=== PATIENT | male | born 1955 | race Caucasian/White ===

== ENCOUNTER 2020-05-18 16:45 | Emergency (ER) | payer BC ==
[2020-05-18] MEDS ORDERED: Lidocaine 4% 5 ML Amp INJECT ONE (18:24)
[2020-05-18] MEDS ORDERED: Diphtheria,Pertussis(Acell),Tetanus Vaccine 0.5 ML SDV IM ONE (18:24)
[2020-05-18] MEDS ORDERED: Bacitracin Oint 1 GM U/D Packet TOP ONE (18:25)
--- NOTE | 2020-05-18 18:29 | EDM.PDOC ---
ED HPI GENERAL MEDICAL PROBLEM - General Chief Complaint: Laceration Stated Complaint: CUT TO SIDE OF LT THUMB Time Seen by Provider: 05/18/20 18:25 Source of Information: Reports: Patient History Limitations: Reports: No Limitations - History of Present Illness INITIAL COMMENTS - FREE TEXT/NARRATIVE: PT WAS CUTTING SOME BRANCHES AND THE KNIFE SLIPPED A ND HE HAS A 1 INCH LACER ATION ON THE SIDE OF THE RT THUNB,. tHIS DOES GO DEEP INTO THE SUBQ . tHE IS BLEEDS WHEN THE THUMB MOVES. hE IS DUE FOR HIS TETANUS,. Onset: Today, Sudden Duration: Hour(s): Location: Reports: Upper Extremity, Right Associated Symptoms: Reports: No Other Symptoms - Related Data Allergies Allergy/AdvReac Type Severity Reaction Status Date / Time Penicillins Allergy Rash Verified 05/18/20 17:03 Home Meds: Home Meds hydroCHLOROthiazide [Hydrochlorothiazide] 1 tab PO DAILY 05/18/20 [History] Past Medical History Cardiovascular History: Reports: Hypertension - Past Surgical History Male Surgical History: Reports: Prostatectomy Musculoskeletal Surgical History: Reports: Arthroscopic Knee Social & Family History - Tobacco Use Smoking Status *Q: Never Smoker ED ROS GENERAL - Review of Systems Review Of Systems: See Below Constitutional: Reports: No Symptoms HEENT: Reports: No Symptoms Respiratory: Reports: No Symptoms Cardiovascular: Reports: No Symptoms Endocrine: Reports: No Symptoms GI/Abdominal: Reports: No Symptoms : Reports: No Symptoms Musculoskeletal: Reports: Other ( CUT ON THE RT THUMB. ) Skin: Reports: No Symptoms ED EXAM, SKIN/RASH Exam: See Below Text/Narrative:: PT HAS A 1 INCH CUT ON THE RT THUMB. tHIS IS DEEP TO THE SUBQ. hE HAS NORMAL MOTION AND NORMAL SENSATION. Exam Limited By: No Limitations General Appearance: Alert, Anxious Extremities: Other ( 1 INCH LACERATION ON THE SIDE OF THE THUMB. hE HAS NORMAL SENSATION AND NORMAL MOTION,. ) Neurological: Alert, Oriented, Normal Cognition Psychiatric: Anxious Course - Vital Signs Last Recorded V/S: Last Vital Signs Temp 36.0 C L 05/18/20 17:08 Pulse 69 05/18/20 17:08 Resp 16 05/18/20 17:08 BP 161/107 H 05/18/20 17:08 Pulse Ox 96 05/18/20 17:08 - Orders/Labs/Meds Meds: Medications Discontinued Medications Generic Name Dose Route Start Last Admin Trade Name Freq PRN Reason Stop Dose Admin Bacitracin 1 dose 05/18/20 18:25 05/18/20 18:40 Bacitracin Oint 1 Gm TOP 05/18/20 18:26 1 dose ONETIME ONE Administration Diphtheria/Tetanus/Acell Pertussis 0.5 ml 05/18/20 18:24 05/18/20 18:40 Adacel IM 05/18/20 18:25 0.5 ml .ONCE ONE Administration Lidocaine HCl 5 ml 05/18/20 18:24 Xylocaine-Mpf 4% INJECT 05/18/20 18:25 ONETIME ONE Lidocaine HCl 5 ml 05/18/20 18:35 05/18/20 18:40 Xylocaine-Mpf 1% INJECT 05/18/20 18:36 5 ml ONETIME ONE Administration - Re-Assessments/Exams Free Text/Narrative Re-Assessment/Exam: 05/18/20 18:55 the area was cleansed well and infiltrated with lidocaine. The wound was closed with 5-0 prolene. He was given a tetanus booster. the wound was dressed with bacatracin. Departure - Departure Time of Disposition: 18:53 Disposition: Home, Self-Care 01 Condition: Fair Clinical Impression: Laceration - Discharge Information Instructions: Laceration Care, Adult, [id number] Referrals: PCP,None [Primary Care Provider] - Forms: ED Department Discharge Care Plan Goals: keep dry, no further ointments, suture removal in 8 days. keep covered with a dry dressing. Sepsis Event Note (ED) - Evaluation Sepsis Screening Result: No Definite Risk
== END 2020-05-18 20:10 | disposition home or self-care (01) ==
LOC: JP.ED 16:45
DX: S61.011A Laceration without foreign body of right thumb without damage to nail, initial encounter (principal); I10 Essential (primary) hypertension; Z23 Encounter for immunization; Z88.0 Allergy status to penicillin; Z79.899 Other long term (current) drug therapy; W26.0XXA Contact with knife, initial encounter
CPT/HCPCS: 12001; 90471; 90715; 99282; J2001